=== PATIENT | male | born 1995 | race Caucasian/White ===

== ENCOUNTER 2019-04-15 14:04 | Emergency (ER) | payer BC, SELFPAY ==
[2019-04-15 14:05] VITALS: BP 139/83; PULSE 99; RESP 16; TEMP 36.7; O2SAT 97; BMI 26.6
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
== END 2019-04-15 15:13 | disposition home or self-care (01) ==
LOC: ED 15:00
PROVIDERS: Emergency Provider Emergency Medicine
DX: S31.109A Unspecified open wound of abdominal wall, unspecified quadrant without penetration into peritoneal cavity, initial encounter (principal); S31.000A Unspecified open wound of lower back and pelvis without penetration into retroperitoneum, initial encounter; V29.9XXA Motorcycle rider (driver) (passenger) injured in unspecified traffic accident, initial encounter; Y93.I9 Activity, other involving external motion; Y92.410 Unspecified street and highway as the place of occurrence of the external cause; Y99.9 Unspecified external cause status; Z88.5 Allergy status to narcotic agent
CPT/HCPCS: 99282